=== PATIENT | male | born 1975 | race American Indian/Alaskan Native ===

== ENCOUNTER 2017-04-29 15:34 | Emergency (ER) | payer SELFPAY ==
[2017-04-29 15:46] VITALS: BP 166/112
== END 2017-04-29 19:35 | disposition left against medical advice (07) ==
LOC: ED 15:34
DX: M54.2 Cervicalgia (principal); M54.9 Dorsalgia, unspecified; Z53.21 Procedure and treatment not carried out due to patient leaving prior to being seen by health care provider